=== PATIENT | male | born 2000 | race Two or more races ===

== ENCOUNTER 2024-09-13 16:22 | Emergency (ER) | payer OTHER, SELFPAY ==
--- NOTE | 2024-09-13 | XR_ITS ---
[facility] [id number] Patient Name: LESLIE MORALES MRN: [id number] date: 2000 Sex: M Assigned Patient Location: ER Current Patient Location: Accession/Order Number: [id number] Exam Date: 09/13/2024 17:30 Report Date: 09/13/2024 19:17 At the request of: SHERIN EPPERSON Procedure: XR femur LT 2V EXAM: XR knee LT 3V, XR femur LT 2V HISTORY: The patient is a 24-year-old male, fall COMPARISON: None. FINDINGS: The left femur is radiographically negative with no evidence of fracture, cortical lucencies, or other osseous abnormalities. The hip joint is maintained. The left knee is radiographically negative with no evidence of fracture, dislocation, cortical discontinuities, or other osseous or articular abnormalities. XR/XR femur LT 2V IMPRESSION: Negative. Electronically authenticated by: JUAN R ESPINOSA Date: 09/13/2024 19:17
[2024-09-13 16:38] VITALS: BP 126/83; PULSE 77; TEMP 36.8; O2SAT 99; BMI 26.3
[2024-09-13 16:45] VITALS: O2SAT 100
--- NOTE | 2024-09-13 16:49 | XR_ITS ---
[facility] [id number] Patient Name: LESLIE MORALES MRN: [id number] date: 2000 Sex: M Assigned Patient Location: ER Current Patient Location: Accession/Order Number: [id number] Exam Date: 09/13/2024 17:30 Report Date: 09/13/2024 19:17 At the request of: SHERIN EPPERSON Procedure: XR knee LT 3V EXAM: XR knee LT 3V, XR femur LT 2V HISTORY: The patient is a 24-year-old male, fall COMPARISON: None. FINDINGS: The left femur is radiographically negative with no evidence of fracture, cortical lucencies, or other osseous abnormalities. The hip joint is maintained. The left knee is radiographically negative with no evidence of fracture, dislocation, cortical discontinuities, or other osseous or articular abnormalities. XR/XR knee LT 3V IMPRESSION: Negative. Electronically authenticated by: JUAN R ESPINOSA Date: 09/13/2024 19:17
--- NOTE | 2024-09-13 16:52 | ED_ITS ---
<Statement entered by Edwin Garcia MD - 09/13/24 18:11> Chart was sent to my inbox for administrative and group management purposes. I was the attending physicians working during the patients hospital course. The patient was seen and managed independently by the MLP. I did not personally see or evaluate this patient, nor was I involved in the patient medical decision making process or plans of care. Pt was dispositioned by the MLP with complete independence. I was available for consultation should the MLP request during this patients ED stay. This documentation has been reviewed and approved. HPI HPI - Extremity Injury (Lower) General Chief Complaint: Extremity Injury, Lower Stated Complaint: LOWER INJURY Time Seen by Provider: 09/13/24 16:28 Source: patient Mode of arrival: walk-in Limitations: no limitations History of Present Illness HPI Narrative: Patient is a 24-year-old male who presents to the emergency department for an injury to the left thigh and knee that occurred at work just prior to arrival. Patient fell on a boat, he works for a [employer] company. He injured his left lateral knee and feels pain up the thigh. No medications taken prior to arrival. He is able to ambulate. He had no other associated injuries. He was noted to have an abrasion to the left lateral knee and minimally to the thigh, tetanus is up-to-date. No deep lacerations or active bleeding Related Data Previous Rx's ?Medication ?Instructions ?Recorded ketorolac 10 mg tablet 10 mg PO TID PRN pain #10 tabs 09/13/24 methocarbamol 750 mg tablet 750 mg PO TID PRN pain #20 tabs 09/13/24 Allergies Allergy/AdvReac Type Severity Reaction Status Date / Time No Known Drug Allergies Allergy Verified 09/13/24 16:37 Opioid HPI Opioid Management Most Recent Pain and Opioid Data: Last Pain Scale 6 09/13/24 17:21 09/13/24 Last MAR Pain Assessment 09/13/24 17:21 Review of Systems ROS Constitutional Denies: fever or chills Ears, nose, mouth, and throat Denies: throat pain or nasal congestion Cardiovascular Denies: chest pain Respiratory Denies: shortness of breath or cough Gastrointestinal Denies: nausea or vomiting Musculoskeletal Denies: back pain Integumentary/Breast Denies: rash Neurological Denies: numbness in extremities or weakness in extremities Hematologic/Lymphatic Denies: easy bruising or easy bleeding PFSH PFSH Social History Little interest or pleasure in doing things: not at all Feeling down, depressed, or hopeless: not at all Exam Narrative Exam Narrative: Gen.: Awake, alert, in no distress Head: Normocephalic, atraumatic ENT: Moist mucous membranes Respiratory: No respiratory distress Extremities: Normal flexion and extension of the left foot and ankle with no bony tenderness of the left foot, ankle, tib-fib. Left lateral knee is mildly tender with abrasion noted. No anterior joint effusion or patellar tenderness. Normal flexion and extension of the left knee. Left lateral thigh is mildly swollen, tender with faint ecchymosis and abrasion noted laterally. No bony point tenderness, no obvious deformity. Left thigh soft and compressible. No bony tenderness of the left hip. Psych: Normal mood and affect Neuro: No focal neuro deficit Skin: Warm, dry, intact Constitutional Vital Signs, click to edit/add: Last Vital Signs Temp 98.3 F 09/13/24 16:38 Pulse 77 09/13/24 16:38 Resp 14 09/13/24 16:38 BP 126/83 09/13/24 16:38 Pulse Ox 100 09/13/24 16:45 O2 Del Method Room Air 09/13/24 16:45 Course Vital Signs Vital signs: Vital Signs Temperature 98.3 F 09/13/24 16:38 Pulse Rate 77 09/13/24 16:38 Respiratory Rate 14 09/13/24 16:38 Blood Pressure 126/83 09/13/24 16:38 Pulse Oximetry 99 09/13/24 16:38 Oxygen Delivery Method Room Air 09/13/24 16:38 Temperature 98.3 F 09/13/24 16:38 Pulse Rate 77 09/13/24 16:38 Respiratory Rate 14 09/13/24 16:38 Blood Pressure 126/83 09/13/24 16:38 Pulse Oximetry 100 09/13/24 16:45 Oxygen Delivery Method Room Air 09/13/24 16:45 MDM - Extremity Injury (Lower) MDM Narrative Medical decision making narrative: Patient's tetanus is up-to-date. He was treated with oral Toradol in the ER, x- rays of the left femur and left knee with no evidence of acute process. Patient dressed with bacitracin, dressing and Memo wrap and remains neurovascularly intact. Rest, ice, elevate. Follow-up with PCP and return to the ER if symptoms change or worsen SUPERVISED APC VISIT, PHYSICIAN ATTESTATION: Based on the medical record the care appears appropriate. ? Medical Records Attestation: I reviewed the patient's medical records. Discharge Plan Discharge Chief Complaint: Extremity Injury, Lower Clinical Impression: Contusion of left leg, Abrasion of left leg Patient Disposition: Home, Self-Care Time of Disposition Decision: 17:48 Condition: Good Prescriptions / Home Meds: New ketorolac 10 mg tablet 10 mg PO TID PRN (Reason: pain) Qty: 10 0RF methocarbamol 750 mg tablet 750 mg PO TID PRN (Reason: pain) Qty: 20 0RF Print Language: Algerian Instructions: Contusion in Adults (ED) Referrals: Physician,Non-Staff, MD [Primary Care Provider] - 1 week
[2024-09-13] MEDS: BACITRACIN OINTMENT 28.4 GM TUBE 1 APPLIC TOPICAL (17:21)
[2024-09-13] MEDS: KETOROLAC TROMETHAMINE 10 MG TABLET PO (17:21)
== END 2024-09-13 18:11 | disposition home or self-care (01) ==
PROVIDERS: Emergency Provider Emergency Medicine
DX: S80.12XA Contusion of left lower leg, initial encounter (principal); S70.12XA Contusion of left thigh, initial encounter; W19.XXXA Unspecified fall, initial encounter; S80.212A Abrasion, left knee, initial encounter; S70.312A Abrasion, left thigh, initial encounter
CPT/HCPCS: 73552; 73562; 99284